=== PATIENT | male | born 1940 | race Caucasian/White ===

== ENCOUNTER → 2016-10-09 | Day surgery (SDC) | payer OTHER ==
[~2016-10-09] MED LIST: ASPI325T PO; BUPIVACAINE HCL PF 0.5% 30 ML VIAL ONE; CARD8TAB6 PO; DYAZ37.57 PO; ENOX40P SQ; FEXO180 PO; FLUT50SP EACH NARE; LACTATED RINGER'S 1000 ML INJ 1,000 ML ONE; LORTA5 PO; LUTE6TAB2 PO; MIDAZOLAM HCL 2 MG/2 ML VIAL ONE; PRAV40 PO; PROPOFOL 100 MG/10 ML INJ IV ONE; Z.0.COMMODE-3:1; Z.0.WALKERFRONT; ceFAZolin INJ 1,000 MG VIAL ONE
--- NOTE | 2016-10-12 12:29 | MP ---
cc: SLOAN LANZA M.D. DATE OF SURGERY: 10/09/2016 PREOPERATIVE DIAGNOSIS Right hand long finger stenosing tenosynovitis (trigger finger). POSTOPERATIVE DIAGNOSIS Right hand long finger stenosing tenosynovitis (trigger finger). SURGEON Dr. Sloan Lanza CASEWORKER BRENDEN Montgomery The surgical procedure was assisted by my Advanced Registered Nurse Practitioner. My DIRECTOR HUMAN SERVICES presence was necessary throughout this case for the manipulation and positioning of the surgical extremity. My DIRECTOR HUMAN SERVICES was assisting me throughout the duration of this procedure. The skill set of an Advanced Registered Nurse Practitioner was medically necessary to complete this procedure. During the surgical case, the surgical instruments inspector was working at the back table and the Advanced Registered Nurse Practitioner was directly assisting me. PROCEDURE Right hand long finger tendon sheath incision for trigger finger. ESTIMATED BLOOD LOSS Minimal. TOURNIQUET TIME Six minutes at 250 mmHg pressure. DETAILS OF PROCEDURE The patient was brought back to the operative theater. The patient had TIVA anesthesia administered. The right upper extremity was prepped and draped in the usual sterile fashion. We gave infiltration of 0.25% Marcaine without epinephrine into the palmar aspect of the hand. We made an oblique incision over the A1 kong of the right hand long finger. This was done after the hand was exsanguinated and tourniquet was raised to 250 mmHg pressure. We bluntly dissected down to the A1 kong. Not only did we find that the A1 kong was very tight but the soft tissue overlying the tendon sheath just proximal to this was also very stenotic. We incised through the A1 kong starting in the mid aspect and going distal and then proximal. Then we incised some stenotic fibrotic tissue over the more proximal aspect of the tendon from the A1 kong. This released the adhesions very nicely. There was some tendinosis noted in the tendon itself. The tendon was intact. The tendon was mildly to moderately thickened. No tears were definitively noted. The finger had full excursion after we completed the release. The tourniquet was released. Hemostasis was achieved. The incision was closed with 2-0 Vicryl followed by 3-0 nylon. The hand was placed into a hand bundle. SloanMD CHINEDU Isbell/ASHLEY /2:10 PM /12:24 PM
== END | disposition home or self-care (01) ==
LOC: ESDC 12:48
PROVIDERS: ATTEND Orthopaedic Surgery
DX: M65.331 Trigger finger, right middle finger (principal)
CPT/HCPCS: 01810; 26055; J0690; J2250; J3010; J7120